=== PATIENT | male | born 1930 | race African-American/Black ===

== ENCOUNTER 2020-03-26 14:59 | Emergency (ER) | payer MEDICARE, BC, OTHER ==
[~2020-03-26] VITALS: Ht 180.3 cm; Wt 83.9 kg
[~2020-03-26 14:59] MED LIST: CALC500T78 PO; IRBE150T28 PO; LEVO125T PO; MAXIDE PO; OMEG1CAP74 PO; TIMO5DRO31 OP; VITA400T4 PO; [UNRECOGNIZED DRUG - CODE] PO
--- NOTE | 2020-03-26 15:17 | NUR ---
PT IS IN ROOM #2A. DR MEZA EVALUATED THE PT.
--- NOTE | 2020-03-26 16:06 | NUR ---
PT WAS D/C'd TO HOME. D/C INSTRUCTIONS GIVEN TO THE PT BY DR MEZA.
[2020-03-26 16:07] VITALS: BP 141/72
== END 2020-03-26 16:07 | disposition home or self-care (01) ==
LOC: ER 14:59
DX: B34.9 Viral infection, unspecified (principal); R05 Cough; Z20.828 Contact with and (suspected) exposure to other viral communicable diseases; E03.9 Hypothyroidism, unspecified; Z79.890 Hormone replacement therapy; I10 Essential (primary) hypertension; Z79.899 Other long term (current) drug therapy
CPT/HCPCS: 71045; 99284; U0003; A4663

== ENCOUNTER 2020-04-28 16:32 | Inpatient (IN) | payer MEDICARE, BC, OTHER ==
[~2020-04-28] VITALS: Ht 180.3 cm; Wt 72.6 kg
[2020-04-28] MEDS ORDERED: AVALIDE PO (17:05)
[2020-04-28 17:51] LABS: BASOPHILS % (AUTO) 0.4 % (0.0-2.0); CREATININE 1.2 mg/dL (0.6-1.3); EOSINOPHILS # (AUTO) 0.1 K/uL (0.0-0.7); EOSINOPHILS % (AUTO) 1.3 % (0.0-7.0); HEMATOCRIT 36.5 % (36.7-47.1); HEMOGLOBIN 12.3 g/dL (12.5-16.3); LYMPHOCYTES # (AUTO) 1.6 K/uL (20.0-40.0); LYMPHOCYTES % (AUTO) 28.3 % (20.5-51.5); MEAN CORPUSCULAR HEMOGLOBIN 31.1 uug (23.8-33.4); MEAN CORPUSCULAR HGB CONC 34 g/dL (32.5-36.3); MEAN CORPUSCULAR VOLUME 92.3 fL (73.0-96.2); MONOCYTES # (AUTO) 0.7 K/uL (2.0-10.0); MONOCYTES % (AUTO) 12.2 % (0.0-11.0); NEUTROPHILS # (AUTO) 3.3 K/uL (1.8-8.9); NEUTROPHILS % (AUTO) 57.8 % (38.5-71.5); PLATELET COUNT (AUTO) 141 K/uL (152-348); POTASSIUM 4.2 mmol/L (3.5-5.1); RED BLOOD CELL COUNT(AUTO) 3.95 MIL/uL (4.06-5.63); WHITE BLOOD COUNT (AUTO) 5.8 K/uL (3.6-10.2)
[2020-04-28 18:05] LABS: BILIRUBIN,DIRECT 0.2 mg/dL (0.0-0.2)
[2020-04-28] MEDS ORDERED: SWABABLE VALVE TRANSFER SET EA MC ONE (18:48)
[2020-04-28] MEDS ORDERED: IOHEXOL 350 100 ML INFUS..BTL ONE (18:49)
[2020-04-28] MEDS ORDERED: IV NORMAL SALINE 250 ML IV ONE (18:49)
[2020-04-28] MEDS ORDERED: Z GUARD REMEDY PASTE 57 GM TUBE TOP PRN (19:00)
[2020-04-28] MEDS ORDERED: MAGNESIUM HYDROXIDE 30 ML LIQUID UDC PO PRN (19:00)
[2020-04-28] MEDS ORDERED: ACETAMINOPHEN 325 MG TABLET PO PRN (19:00)
[2020-04-28] MEDS ORDERED: HYDROCODONE/APAP 5-325MG TABLET PO PRN (19:00)
[2020-04-28] MEDS ORDERED: ONDANSETRON 4 MG/2 ML VIAL IV PRN (19:00)
[2020-04-28 21:15] VITALS: BP 118/74
[2020-04-28] MEDS ORDERED: NITROGLYCERIN 0.4 MG/TAB BOTTLE SL PRN (23:30)
[2020-04-29] VITALS: BP 120/64
[2020-04-29 04:00] VITALS: BP 112/64
[2020-04-29 06:58] LABS: BASOPHILS % (AUTO) 0.6 % (0.0-2.0); EOSINOPHILS # (AUTO) 0.1 K/uL (0.0-0.7); EOSINOPHILS % (AUTO) 1.5 % (0.0-7.0); HEMATOCRIT 35.6 % (36.7-47.1); HEMOGLOBIN 12.2 g/dL (12.5-16.3); LYMPHOCYTES # (AUTO) 1.8 K/uL (20.0-40.0); LYMPHOCYTES % (AUTO) 24.1 % (20.5-51.5); MEAN CORPUSCULAR HEMOGLOBIN 31.7 uug (23.8-33.4); MEAN CORPUSCULAR HGB CONC 34 g/dL (32.5-36.3); MEAN CORPUSCULAR VOLUME 92.4 fL (73.0-96.2); MONOCYTES # (AUTO) 0.7 K/uL (2.0-10.0); MONOCYTES % (AUTO) 9.4 % (0.0-11.0); NEUTROPHILS # (AUTO) 4.8 K/uL (1.8-8.9); NEUTROPHILS % (AUTO) 64.4 % (38.5-71.5); PLATELET COUNT (AUTO) 141 K/uL (152-348); RED BLOOD CELL COUNT(AUTO) 3.86 MIL/uL (4.06-5.63); WHITE BLOOD COUNT (AUTO) 7.4 K/uL (3.6-10.2)
[2020-04-29 07:25] LABS: CREATININE 1.3 mg/dL (0.6-1.3); PHOSPHOROUS 3.7 mg/dL (2.5-4.9)
[2020-04-29] MEDS ORDERED: AVALIDE PO SCH (09:00)
[2020-04-29] MEDS ORDERED: LEVOTHYROXINE SODIUM 125 MCG TABLET PO SCH (09:00)
[2020-04-29] MEDS: HYDROCHLOROTHIAZIDE 12.5 MG CAPSULE PO SCH (09:34)
[2020-04-29] MEDS: ASCORBIC ACID 500 MG TABLET PO SCH (09:35)
[2020-04-29] MEDS: VITAMIN E 400 UNITS CAPSULE PO SCH (09:39)
[2020-04-29] MEDS: TIMOLOL MALEATE 0.5% OPHT DROP 5 ML BOTTLE EACHEYE SCH (09:39)
[2020-04-29] MEDS: LOSARTAN POTASSIUM 50 MG TABLET PO SCH (09:40)
[2020-04-29 09:42] VITALS: BP 109/67
[2020-04-29 11:17] VITALS: BP 123/67
[2020-04-29 15:18] VITALS: BP 126/80
[2020-04-30] VITALS: BP 113/70
[2020-04-30] MEDS: LATANOPROST OPHT DROP 2.5 ML BOTTLE EACHEYE SCH ×2 (00:43→20:47)
[2020-04-30 04:12] VITALS: BP 115/75
[2020-04-30 06:40] LABS: BASOPHILS % (AUTO) 0.3 % (0.0-2.0); EOSINOPHILS # (AUTO) 0.1 K/uL (0.0-0.7); EOSINOPHILS % (AUTO) 1.5 % (0.0-7.0); HEMATOCRIT 37.1 % (36.7-47.1); HEMOGLOBIN 12.7 g/dL (12.5-16.3); LYMPHOCYTES % (AUTO) 29.6 % (20.5-51.5); MEAN CORPUSCULAR HEMOGLOBIN 31.3 uug (23.8-33.4); MEAN CORPUSCULAR HGB CONC 34 g/dL (32.5-36.3); MEAN CORPUSCULAR VOLUME 91.6 fL (73.0-96.2); MONOCYTES # (AUTO) 0.7 K/uL (2.0-10.0); MONOCYTES % (AUTO) 10.4 % (0.0-11.0); NEUTROPHILS # (AUTO) 3.9 K/uL (1.8-8.9); NEUTROPHILS % (AUTO) 58.2 % (38.5-71.5); PLATELET COUNT (AUTO) 146 K/uL (152-348); RED BLOOD CELL COUNT(AUTO) 4.05 MIL/uL (4.06-5.63); WHITE BLOOD COUNT (AUTO) 6.7 K/uL (3.6-10.2)
[2020-04-30 06:55] LABS: CREATININE 1.1 mg/dL (0.6-1.3); POTASSIUM 3.8 mmol/L (3.5-5.1)
[2020-04-30] MEDS: ASCORBIC ACID 500 MG TABLET PO SCH (08:18)
[2020-04-30] MEDS: VITAMIN E 400 UNITS CAPSULE PO SCH (08:18)
[2020-04-30] MEDS: ASPIRIN 81 MG TAB.CHEW PO SCH (08:18)
[2020-04-30] MEDS: HYDROCHLOROTHIAZIDE 12.5 MG CAPSULE PO SCH (08:18)
[2020-04-30] MEDS: TIMOLOL MALEATE 0.5% OPHT DROP 5 ML BOTTLE EACHEYE SCH (08:18)
[2020-04-30] MEDS: FOLIC ACID 1 MG TABLET PO SCH (08:18)
[2020-04-30] MEDS: LOSARTAN POTASSIUM 50 MG TABLET PO SCH (08:19)
[2020-04-30] MEDS ORDERED: FOLIC ACID 1 MG TABLET PO SCH (09:00)
[2020-04-30 11:56] VITALS: BP 97/63
[2020-04-30 16:00] VITALS: BP 110/70
[2020-04-30 20:00] VITALS: BP 112/79
[2020-05-01] VITALS: BP 126/75
[2020-05-01 04:00] VITALS: BP 110/72
[2020-05-01] MEDS ORDERED: LEVOTHYROXINE SODIUM 125 MCG TABLET PO SCH (07:00)
[2020-05-01 08:00] VITALS: BP 111/71
[2020-05-01] MEDS: TIMOLOL MALEATE 0.5% OPHT DROP 5 ML BOTTLE EACHEYE SCH (08:54)
[2020-05-01] MEDS: VITAMIN E 400 UNITS CAPSULE PO SCH (08:56)
[2020-05-01] MEDS: ASCORBIC ACID 500 MG TABLET PO SCH (08:56)
[2020-05-01] MEDS: LOSARTAN POTASSIUM 50 MG TABLET PO SCH ×2 (08:57→09:00)
[2020-05-01] MEDS: ASPIRIN 81 MG TAB.CHEW PO SCH (08:57)
[2020-05-01] MEDS: FOLIC ACID 1 MG TABLET PO SCH (08:57)
[2020-05-01] MEDS: HYDROCHLOROTHIAZIDE 12.5 MG CAPSULE PO SCH ×2 (08:58→09:00)
[2020-05-01 09:00] VITALS: BP 96/69
[2020-05-01] MEDS ORDERED: INFLUENZA VACCINE 2020-2021 0.5 ML DISP.SYRIN IM ONE (09:30)
[2020-05-01 10:05] VITALS: BP 108/67
== END 2020-05-01 11:00 | disposition home or self-care (01) | DRG 300 ==
LOC: ER 16:33 → TELE3 20:38
PROVIDERS: ADMIT Family Medicine; ATTEND Family Medicine
DX: I71.2 Thoracic aortic aneurysm, without rupture (principal); E44.1 Mild protein-calorie malnutrition; N17.9 Acute kidney failure, unspecified; E03.9 Hypothyroidism, unspecified; Z79.890 Hormone replacement therapy; D64.9 Anemia, unspecified; H40.9 Unspecified glaucoma; I10 Essential (primary) hypertension; D63.8 Anemia in other chronic diseases classified elsewhere; E88.09 Other disorders of plasma-protein metabolism, not elsewhere classified; R00.1 Bradycardia, unspecified; Z68.22 Body mass index [BMI] 22.0-22.9, adult; R07.89 Other chest pain; T50.8X5A Adverse effect of diagnostic agents, initial encounter; Y92.89 Other specified places as the place of occurrence of the external cause; Z82.49 Family history of ischemic heart disease and other diseases of the circulatory system; I35.8 Other nonrheumatic aortic valve disorders
CPT/HCPCS: 36415; 70030-TC; 71045; 71275; 83550; 83735; 84100; 85025; 90686; 93005; 93307; A4663; G0378; J7050; Q9967

== ENCOUNTER 2020-05-27 11:27 | Inpatient (IN) | payer MEDICARE, BC, OTHER ==
[~2020-05-27] VITALS: Ht 180.3 cm; Wt 83.9 kg
[~2020-05-27 11:27] MED LIST changes: +AVALIDE PO; -CALC500T78 PO; -IRBE150T28 PO; -MAXIDE PO; -OMEG1CAP74 PO
--- NOTE | 2020-05-27 11:28 | NUR ---
Pt ambulatory to room 5a.
--- NOTE | 2020-05-27 11:30 | NUR ---
Unable to do EKG, EKG machine in use for a pt in isolation.
--- NOTE | 2020-05-27 11:44 | NUR ---
B/P: LT ARM: 121/84 RT ARM: 106/72
[2020-05-27 12:15] LABS: BASOPHILS % (AUTO) 0.3 % (0.0-2.0); EOSINOPHILS # (AUTO) 0.1 K/uL (0.0-0.7); EOSINOPHILS % (AUTO) 1.5 % (0.0-7.0); HEMATOCRIT 34.7 % (36.7-47.1); HEMOGLOBIN 11.9 g/dL (12.5-16.3); LYMPHOCYTES # (AUTO) 1.7 K/uL (20.0-40.0); MEAN CORPUSCULAR HEMOGLOBIN 31.1 uug (23.8-33.4); MEAN CORPUSCULAR HGB CONC 34 g/dL (32.5-36.3); MEAN CORPUSCULAR VOLUME 90.7 fL (73.0-96.2); MONOCYTES # (AUTO) 0.7 K/uL (2.0-10.0); MONOCYTES % (AUTO) 10.2 % (0.0-11.0); NEUTROPHILS # (AUTO) 4.6 K/uL (1.8-8.9); PLATELET COUNT (AUTO) 142 K/uL (152-348); RED BLOOD CELL COUNT(AUTO) 3.83 MIL/uL (4.06-5.63); WHITE BLOOD COUNT (AUTO) 7.2 K/uL (3.6-10.2)
[2020-05-27 12:21] LABS: CARBON DIOXIDE 24 mmol/L (21-32); CHLORIDE 106 mmol/L (98-107); CREATININE 1.4 mg/dL (0.6-1.3); GLUCOSE 104 mg/dL (74-106); POTASSIUM 3.9 mmol/L (3.5-5.1); UREA NITROGEN, BLOOD 27 mg/dL (7-18)
[2020-05-27] MEDS ORDERED: IV NORMAL SALINE 250 ML IV ONE (12:44)
[2020-05-27] MEDS ORDERED: IOHEXOL 300MG/ML 100 ML INFUS..BTL ONE (12:44)
[2020-05-27] MEDS ORDERED: SWABABLE VALVE TRANSFER SET EA MC ONE (12:44)
--- NOTE | 2020-05-27 12:47 | NUR ---
PT TO CT VIA RA[facility] MENDOZA NOTED.
[2020-05-27 13:27] LABS: BILIRUBIN,DIRECT 0.1 mg/dL (0.0-0.2); BILIRUBIN,TOTAL 0.3 mg/dL (0.2-1.0); TOTAL PROTEIN, SERUM 7.2 g/dL (6.4-8.2)
--- NOTE | 2020-05-27 13:39 | NUR ---
Pt resting in gurney and watching TV, states he is pain free at this time.
--- NOTE | 2020-05-27 14:30 | NUR ---
[facility] PROVIDED FOR PT PER REQUEST. PT ATE WITH [employer].
[2020-05-27] MEDS ORDERED: IV NORMAL SALINE 500 ML BAG IV ONE (15:00)
[2020-05-27] MEDS ORDERED: MAGNESIUM HYDROXIDE 30 ML LIQUID UDC PO PRN (17:00)
[2020-05-27] MEDS ORDERED: ACETAMINOPHEN 325 MG TABLET PO PRN (17:00)
[2020-05-27] MEDS ORDERED: Z GUARD REMEDY PASTE 57 GM TUBE TOP PRN (17:00)
[2020-05-27] MEDS ORDERED: ONDANSETRON 4 MG/2 ML VIAL IV PRN (17:00)
[2020-05-27] MEDS ORDERED: HYDROCODONE/APAP 5-325MG TABLET PO PRN (17:00)
--- NOTE | 2020-05-27 19:00 | NUR ---
TRANSFERED PT TO FLOOR WHEN TH COVID RESULT CAME BACK. PT IN STABLE CONDITION.
--- NOTE | 2020-05-27 19:55 | NUR ---
Received patient via wheelchair from ED. Got report from AM nurse. Patient comfortable, alert and orientated x4, resting in bed. Call light within reach, bed at lowest position, IV assessed. Will continue to monitor.
[2020-05-27] MEDS ORDERED: ENOXAPARIN SODIUM 40 MG/0.4 ML DISP.SYRIN SQ SCH (20:00)
[2020-05-27] MEDS: ASPIRIN 81 MG TAB.CHEW PO SCH (20:03)
[2020-05-27 20:15] VITALS: BP 117/74
--- NOTE | 2020-05-27 23:24 | NUR ---
Pt sleeping in bed. Afebrile, VSS, leads attached and environmental monitoring technician showing sinus rhythm. No signs of distress, no signs of pain, patient requested food and was given a sandwich. Call light within reach, bed at lowest position. Will continue to assess and monitor.
--- NOTE | 2020-05-27 23:45 | NUR ---
Pt commented that he usually receives his anti-hypertensive medication at 0600 ([facility]), but does not have his medication on him. I made him aware the the doctor prescribed him an alternative. Patient agreed to take the new medication the doctor prescribed in place of his usual at 0600. Bed at lowest position, call light within reach, no pain, no distress, afebrile. Will continue to monitor.
[2020-05-28] VITALS: BP 126/76
[2020-05-28 04:04] VITALS: BP 116/85
--- NOTE | 2020-05-28 04:24 | NUR ---
Patient has been sleeping soundly the entire night. No reports of pain, no signs of distress. Call light within reach, bed at lowest point. Will continue to monitor and assess.
[2020-05-28 06:55] LABS: THYROID STIMULATING HORMONE 0.438 mIU/mL (0.358-3.740)
[2020-05-28 07:05] LABS: BASOPHILS % (AUTO) 0.5 % (0.0-2.0); EOSINOPHILS # (AUTO) 0.1 K/uL (0.0-0.7); HEMATOCRIT 36.2 % (36.7-47.1); HEMOGLOBIN 12.3 g/dL (12.5-16.3); LYMPHOCYTES # (AUTO) 1.5 K/uL (20.0-40.0); LYMPHOCYTES % (AUTO) 21.3 % (20.5-51.5); MEAN CORPUSCULAR HEMOGLOBIN 30.8 uug (23.8-33.4); MEAN CORPUSCULAR HGB CONC 34 g/dL (32.5-36.3); MONOCYTES # (AUTO) 0.7 K/uL (2.0-10.0); MONOCYTES % (AUTO) 9.1 % (0.0-11.0); NEUTROPHILS # (AUTO) 4.9 K/uL (1.8-8.9); NEUTROPHILS % (AUTO) 68.1 % (38.5-71.5); PLATELET COUNT (AUTO) 139 K/uL (152-348); RED BLOOD CELL COUNT(AUTO) 3.98 MIL/uL (4.06-5.63); WHITE BLOOD COUNT (AUTO) 7.3 K/uL (3.6-10.2)
[2020-05-28 07:08] LABS: BILIRUBIN,TOTAL 0.7 mg/dL (0.2-1.0); CREATININE 1.2 mg/dL (0.6-1.3); PHOSPHOROUS 2.7 mg/dL (2.5-4.9); POTASSIUM 3.9 mmol/L (3.5-5.1); TOTAL PROTEIN, SERUM 6.9 g/dL (6.4-8.2)
[2020-05-28] MEDS ORDERED: LEVOTHYROXINE SODIUM 125 MCG TABLET PO SCH (07:30)
--- NOTE | 2020-05-28 07:30 | NUR ---
Received patient resting in bed, awake, alert and oriented times 4. Patient denies any pain at this time. IV in on the right AC 20 gauge heplock, he is on the monitor sinus rhythm. Safety precautions in place with call light and belongings within reach. Will continue to monitor.
[2020-05-28 07:41] VITALS: BP 117/68
[2020-05-28] MEDS: ASPIRIN 81 MG TAB.CHEW PO SCH (08:57)
[2020-05-28] MEDS ORDERED: TIMOLOL MALEATE 0.5% OPHT DROP 5 ML BOTTLE OP SCH (09:00)
[2020-05-28] MEDS ORDERED: HYDROCHLOROTHIAZIDE 12.5 MG CAPSULE PO SCH (09:00)
[2020-05-28] MEDS ORDERED: LOSARTAN POTASSIUM 50 MG TABLET PO SCH (09:00)
[2020-05-28] MEDS ORDERED: ASCORBIC ACID 500 MG TABLET PO SCH (09:00)
[2020-05-28 11:38] VITALS: BP 114/67
[2020-05-28] MEDS ORDERED: IRBESARTAN PO SCH (13:00)
[2020-05-28] MEDS ORDERED: HYDROCHLOROTHIAZIDE PO SCH (13:00)
[2020-05-28 14:00] LABS: *BILIRUBIN,URIN NEGATIVE (NEGATIVE); *CLARITY,URINE CLEAR (CLEAR); *COLOR,URINE YELLOW (YELLOW); *KETONES,URINE NEGATIVE (NEGATIVE); *UROBILINOGEN,URINE 0.2 E.U./dl (NORMAL); LEUKOCYTE ESTERASE ,URINE NEGATIVE (NEGATIVE); NITRITE, URINE NEGATIVE (NEGATIVE); PH,URINE 5.5 (5.0-8.0); UGLUCOSE NEGATIVE (NEGATIVE)
[2020-05-28 14:09] LABS: *BLOOD, URINE TRACE (NEGATIVE)
[2020-05-28 14:17] LABS: *URINE TOTAL PROTEIN RANDOM 20.2 mg/dL (<150/24HR)
[2020-05-28 14:24] LABS: BACTERIA,URINE NONE SEEN /HPF (NONE SEEN); SQUAMOUS EPITHELIAL CELL,UR NONE SEEN /HPF (NONE SEEN); WBC,URINE 0-3 /HPF (0-3)
--- NOTE | 2020-05-28 14:50 | NUR ---
Tift patient on the phone after the dinkey engine firer/fireman Dr Cesar went in to talk to him, saying to family member that he is leaving AMA. I made MD aware and he said it is okay to DC patient to have stress test and cardiac angiogram outpatient if he wants. Conveyed information to patient and told him i would have CAPACITY MANAGER Keh process his DC if he would just wait a little. Patient agreed. Made CAPACITY MANAGER aware to process DC. Will continue to monitor.
[2020-05-28] MEDS ORDERED: NITR0.4T48 SL (14:53)
[2020-05-28] MEDS ORDERED: ASPI81TA31 PO (14:53)
[2020-05-28] MEDS ORDERED: HYDR12.517 PO (14:53)
[2020-05-28 15:15] VITALS: BP 120/77
--- NOTE | 2020-05-28 15:30 | NUR ---
Walked patient down in a wheelchair. Patient is in stable condition. Patient was discharged with all his discharge paperwork medications and belongings. All vitals signs were stable. All medications given as ordered. Patient teaching completed and patient verbalized his understandings. Patient left in private transportation with daughter Connie.
== END 2020-05-28 16:10 | disposition home or self-care (01) | DRG 311 ==
LOC: ER 11:27 → TELE3 19:01
PROVIDERS: ADMIT Nurse Practitioner Acute Care; ATTEND Nurse Practitioner Acute Care
DX: I20.0 Unstable angina (principal); N17.0 Acute kidney failure with tubular necrosis; D64.9 Anemia, unspecified; D69.6 Thrombocytopenia, unspecified; E03.9 Hypothyroidism, unspecified; E78.5 Hyperlipidemia, unspecified; H40.9 Unspecified glaucoma; I10 Essential (primary) hypertension; I71.2 Thoracic aortic aneurysm, without rupture; R00.1 Bradycardia, unspecified
CPT/HCPCS: 36415; 70030-TC; 71045; 71260; 83735; 84100; 84153; 84156; 84300; 84443; 85025; 85610; 93005; A4663; G0378; J1650; J7040; J7050; Q9967